=== PATIENT | male | born 1950 | race Two or more races ===

== ENCOUNTER 2023-03-11 15:16 | Inpatient (IN) | payer MEDICARE, OTHER ==
[~2023-03-11] VITALS: Ht 172.7 cm; Wt 103.0 kg
--- NOTE | 2023-03-11 15:35 | NUR ---
PT CAME FROM HOME BY AMBULACE WITH C/O BOTH LOWER LIMB SWELLING AND OOZING
--- NOTE | 2023-03-11 15:41 | NUR ---
SEEN BY DR JEFFERSON AT BED SIDE
[2023-03-11] MEDS ORDERED: FUROSEMIDE 40 MG/4 ML VIAL ONE (15:46)
--- NOTE | 2023-03-11 15:57 | NUR ---
BLOOD INVESTIGATION DONE BY LAB
[2023-03-11] MEDS ORDERED: FUROSEMIDE 40 MG/4 ML VIAL IV ONE (16:00)
[2023-03-11] MEDS ORDERED: FURO40TA5 PO (16:19)
[2023-03-11] MEDS ORDERED: TYL2T PO (16:19)
[2023-03-11] MEDS ORDERED: DULO20CA PO (16:19)
[2023-03-11] MEDS ORDERED: SPIR25TA PO (16:19)
[2023-03-11] MEDS ORDERED: DOCU-141 PO (16:19)
[2023-03-11] MEDS ORDERED: ATOR80TA PO (16:19)
[2023-03-11] MEDS ORDERED: METO25TA6 PO (16:19)
[2023-03-11] MEDS ORDERED: APIX5TAB PO (16:19)
[2023-03-11 16:28] LABS: BASOPHILS % (AUTO) 0.3 % (0.0-2.0); EOSINOPHILS % (AUTO) 0.5 % (0.0-6.0); HEMATOCRIT 38 % (39-51); HEMOGLOBIN 12.1 g/dL (13.5-17.5); LYMPHOCYTES # (AUTO) 0.8 K/uL (0.8-4.8); LYMPHOCYTES % (AUTO) 10.8 % (20.0-44.0); MEAN CORPUSCULAR HGB CONC 32 g/dl (31.0-36.0); MEAN CORPUSCULAR VOLUME 83 fL (80-96); MONOCYTES # (AUTO) 0.8 K/uL (0.1-1.30); MONOCYTES % (AUTO) 10.5 % (2.0-12.0); NEUTROPHILS # (AUTO) 5.6 K/uL (1.8-8.9); NEUTROPHILS % (AUTO) 77.9 % (43.0-81.0); PLATELET COUNT (AUTO) 270 K/uL (150-450); RED BLOOD CELL COUNT(AUTO) 4.53 MIL/uL (4.5-6.0); WHITE BLOOD COUNT (AUTO) 7.2 K/uL (4.3-11.0)
[2023-03-11 16:38] LABS: CALCIUM, SERUM 9.6 mg/dL (8.5-10.1); CARBON DIOXIDE 30 mmol/L (21-32); CHLORIDE 98 mmol/L (98-107); CREATININE 1.2 mg/dL (0.6-1.3); GLUCOSE 105 mg/dL (74-106); POTASSIUM 3.7 mmol/L (3.5-5.1); SODIUM SERUM 136 mmol/L (136-145); UREA NITROGEN, BLOOD 23 mg/dL (7-18)
[2023-03-11 16:49] LABS: ALANINE AMINOTRANSFERASE 77 U/L (12-78); ALBUMIN 2.9 g/dL (3.4-5.0); ALKALINE PHOSPHATASE 153 U/L (46-116); ASPARTATE AMINOTRANSFERASE 76 U/L (15-37); BILIRUBIN,DIRECT 1.2 mg/dL (0.0-0.2); BILIRUBIN,TOTAL 1.7 mg/dL (0.2-1.0); MAGNESIUM 2.3 mg/dL (1.8-2.4); TOTAL PROTEIN, SERUM 7.2 g/dL (6.4-8.2)
[2023-03-11] MEDS ORDERED: MAGNESIUM HYDROXIDE 30 ML UDC PO PRN (17:00)
[2023-03-11] MEDS ORDERED: ACETAMINOPHEN 325 MG TABLET PO PRN (17:00)
[2023-03-11] MEDS ORDERED: MAG HYDROX/AL HYDROX/SIMETH 30 ML UDC PO PRN (17:00)
[2023-03-11] MEDS ORDERED: DOCUSATE SODIUM 100 MG CAPSULE PO PRN (17:00)
[2023-03-11] MEDS ORDERED: Z GUARD REMEDY 4 OZ OINT TP PRN (17:00)
[2023-03-11] MEDS ORDERED: ZOLPIDEM TARTRATE 5 MG TABLET PO PRN (17:00)
[2023-03-11] MEDS ORDERED: ONDANSETRON HCL/PF 4 MG/2 ML VIAL IVP PRN (17:00)
--- NOTE | 2023-03-11 17:25 | NUR ---
ROOM 328-1
--- NOTE | 2023-03-11 17:34 | NUR ---
ECHO AT BED SIDE
--- NOTE | 2023-03-11 18:08 | NUR ---
DINESES SOB OR CHEST pain at this time
--- NOTE | 2023-03-11 18:30 | NUR ---
HAND OFFIVAN RN AT BED SIDE TO ROOM 328-1 STABLE VS AND CONDITION
[2023-03-11 18:40] VITALS: BP 128/76
--- NOTE | 2023-03-11 18:54 | NUR ---
DEMONSTRATOR ELECTRIC GAS APPLIANCES NOTES RECEIVED THIS 72 YO MALE PT AT ROOM [facility] AT 1830 VIA HIS BED ACCOMPANIED BY NURSE CHAPO AND JAXON IN STABLE CONDITION, PATIENT IS AOX4, ABLE TO MAKE NEEDS KNOWN IN [place], DENIED PAIN NOR DISCOMFORT AT THE MOMENT, BREATHING WITHOUT DIFFICULTY ON ROOM AIR. ON TELEMONITORING SHOWING SR WITH HR OF 85 BPM AT THE MOMENT. IV ACCESS NOTED ON LAC G#20, CLEAN, INTACT, FLUSHING WELL. VITAL SIGNS TAKEN RECORDED, STABLE. ORIENTED PATIENT TO STAFF. SAFETY MEASURES IN PLACE: BED IN LOWEST AND LOCKED POSITION, SIDE RAILS UPX2, CALL LIGHT AND TRAY TABLE WITHIN EASY REACH. WILL ENDORSE TO OBJECT ORIENTED DEVELOPER ADMITTING NURSE. W
[2023-03-11 20:00] VITALS: BP 117/74
[2023-03-11] MEDS ORDERED: VANCOMYCIN 1.5 GM in IV D5W 500ml IV ONE (20:00)
--- NOTE | 2023-03-11 20:00 | NUR ---
ADMINISTRATIVE SUPPORT COORDINATORSHIRRING TENDER NOTES - RECEIVED PATIENT AWAKE IN BED. 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 A/O X4. BREATHING EVEN AND NON-LABORED ON ROOM AIR. NOT IN APPARENT DISTRESS. VERBALIZED BURNING BILATERAL LOWER EXTREMITY PAIN 5/10. ON TELE MONITOR READING SINUS RHYTHM WITH OCCASIONAL PAC AT 90 BPM. HAS LEFT ANTECUBITAL IV ACCESS #20G AND SALINE LOCKED. NO S/S OF INFILTRATION NOTED. BILATERAL LOWER EXTREMITIES CELLULITIS NOTED. PER PATIENT, HE USES A SUPPORT CANE FOR AMBULATION. INDEPENDENT WITH ADLS. MULTIPLE SCABS NOTED FROM RECENT FALL. SAFETY PRECAUTIONS IN PLACE: BED LOCKED AND IN LOW POSITION, SIDE RAILS UP X2, CALL LIGHT WITHIN REACH. WILL CONTINUE PLAN OF CARE.
[2023-03-11] MEDS: APIXABAN 5 MG TABLET PO SCH (20:14)
[2023-03-11] MEDS: DULOXETINE HCL 20 MG CAPSULE.DR PO SCH (20:16)
[2023-03-11] MEDS: METOPROLOL TARTRATE 25 MG TABLET PO SCH (20:16)
[2023-03-11] MEDS ORDERED: TRAMADOL HCL 50 MG TABLET PO PRN (20:30)
--- NOTE | 2023-03-11 21:12 | NUR ---
NOTIFIED HOSPITALIST NILO THAT PATIENT IS C/O BURNING BILATERAL LOWER EXTREMITIES PAIN 03/05. PRN TRAMADOL 50MG ORDERED.
[2023-03-11] MEDS: ATORVASTATIN 40 MG TABLET PO SCH (21:26)
[2023-03-11] MEDS: PIPERACILLIN /TAZOBACTAM 3.375 G in IV D5W 50 ML IV SCH (23:00)
[2023-03-11] MEDS: GUAIFENESIN LA 600 MG TABLET.SA PO SCH (23:37)
[2023-03-12] VITALS: BP 114/71
[2023-03-12 04:00] VITALS: BP 128/80
[2023-03-12] MEDS: PIPERACILLIN /TAZOBACTAM 3.375 G in IV D5W 50 ML IV SCH ×4 (05:19→23:38)
[2023-03-12 06:34] LABS: BASOPHILS % (AUTO) 0.2 % (0.0-2.0); EOSINOPHILS % (AUTO) 0.4 % (0.0-6.0); HEMATOCRIT 35 % (39-51); HEMOGLOBIN 11.5 g/dL (13.5-17.5); LYMPHOCYTES # (AUTO) 0.8 K/uL (0.8-4.8); LYMPHOCYTES % (AUTO) 11.7 % (20.0-44.0); MEAN CORPUSCULAR HGB CONC 33 g/dl (31.0-36.0); MEAN CORPUSCULAR VOLUME 83 fL (80-96); MONOCYTES # (AUTO) 0.9 K/uL (0.1-1.30); MONOCYTES % (AUTO) 12.9 % (2.0-12.0); NEUTROPHILS # (AUTO) 5.4 K/uL (1.8-8.9); NEUTROPHILS % (AUTO) 74.8 % (43.0-81.0); PLATELET COUNT (AUTO) 266 K/uL (150-450); RED BLOOD CELL COUNT(AUTO) 4.22 MIL/uL (4.5-6.0); WHITE BLOOD COUNT (AUTO) 7.3 K/uL (4.3-11.0)
[2023-03-12 06:48] LABS: CALCIUM, SERUM 9.1 mg/dL (8.5-10.1); CARBON DIOXIDE 31 mmol/L (21-32); CHLORIDE 93 mmol/L (98-107); CREATININE 1.3 mg/dL (0.6-1.3); GLUCOSE 109 mg/dL (74-106); MAGNESIUM 2.1 mg/dL (1.8-2.4); PHOSPHORUS 3.9 mg/dL (2.5-4.9); POTASSIUM 3.7 mmol/L (3.5-5.1); SODIUM SERUM 134 mmol/L (136-145); UREA NITROGEN, BLOOD 25 mg/dL (7-18)
--- NOTE | 2023-03-12 07:20 | NUR ---
FORESTRY FACULTY MEMBER CLOSING NOTES - PATIENT SLEEPING, EASY TO AROUSE. ABLE TO VERBALIZED NEEDS. SATURATING WELL ON ROOM AIR, PERIODS OF COUGHING AND SOB NOTED. KEPT HOB IN HIGH OLIVIA'S. DENIES PAIN AT THIS TIME. AFEBRILE. TELE MONITOR SHOWS SINUS RHYTHM WITH OCCASIONAL PAC AT 70-80 BPM. LEFT ANTECUBITAL IV ACCESS INTACT, PATENT AND FLUSHING. ALL DUE MEDS GIVEN AND NEEDS ATTENDED. OFFLOADED BILATERAL LOWER EXTREMITIES WITH PILLOW. SAFETY PRECAUTIONS MAINTAINED. WILL ENDORSE TO AM RN FOR KAMILLA.
--- NOTE | 2023-03-12 07:25 | NUR ---
ns rn received on bed, awake,alert,oriented x3,not in any form of distress, respirations even and unlabored,no sob noted, came in w/ chf and lower extremities wounds, denies pain at this time, will monitor patient.
[2023-03-12 08:00] VITALS: BP 141/64
[2023-03-12] MEDS: VANCOMYCIN HCL 0.75 GM in IV D5W 250 ML IV SCH ×2 (08:13→20:09)
[2023-03-12] MEDS: DULOXETINE HCL 20 MG CAPSULE.DR PO SCH ×2 (08:44→17:47)
[2023-03-12] MEDS: GUAIFENESIN LA 600 MG TABLET.SA PO SCH ×2 (08:44→21:11)
[2023-03-12] MEDS: METOPROLOL TARTRATE 25 MG TABLET PO SCH ×2 (08:44→17:47)
[2023-03-12] MEDS: APIXABAN 5 MG TABLET PO SCH ×2 (08:45→17:48)
--- NOTE | 2023-03-12 09:00 | NUR ---
ms rn breakfast served,due meds given, tolerated well.was seen by dr. ashley webb/ orders made and carried out.
[2023-03-12] MEDS: FUROSEMIDE 40 MG/4 ML VIAL IV SCH ×3 (09:39→17:47)
[2023-03-12] MEDS: POTASSIUM CHLORIDE 20 MEQ TAB.PRT.SR PO SCH ×3 (09:39→11:44)
[2023-03-12 16:00] VITALS: BP 124/66
--- NOTE | 2023-03-12 18:03 | NUR ---
ms rn on bed, no distress noted,all needs attended.
--- NOTE | 2023-03-12 19:00 | NUR ---
RN OPENING NOTE RECEIVED PT AWAKE IN BED. PT IS A/O X 4, ABLE TO MAKE NEEDS KNOWN. PT IS IN RA, TOLERATING WELL, BREATHING EVEN AND UNLABORED @ THIS TIME. PT IV PRESENT ON THE LEFT FOREARM SALINE LOCK, PATENT, INTACT AND FLUSHES WELL W/ NO S&SX OF INFILTRATION @ SITE NOTED. SAFETY MEASURE IS IN PLACE. BED IN LOWEST AND LOCKED POSITION. SIDE RAIL UP X 2. BEDSIDE TABLE AND CALL LIGHT IS EASY REACH. BED ALARM IS ON. WILL CONTINUE TO MONITOR PT ACCORDINGLY.
[2023-03-12 20:00] VITALS: BP 126/81
[2023-03-12] MEDS: ATORVASTATIN 40 MG TABLET PO SCH (21:11)
[2023-03-13] VITALS: BP_SYST 126; BP_SYST 128; BP_DIAS 78; BP_DIAS 80
[2023-03-13 04:00] VITALS: BP_SYST 126; BP_SYST 128; BP_DIAS 78; BP_DIAS 80
[2023-03-13] MEDS: PIPERACILLIN /TAZOBACTAM 3.375 G in IV D5W 50 ML IV SCH ×2 (05:01→11:27)
[2023-03-13 06:14] LABS: BASOPHILS % (AUTO) 0.2 % (0.0-2.0); EOSINOPHILS % (AUTO) 0.4 % (0.0-6.0); HEMATOCRIT 36 % (39-51); HEMOGLOBIN 11.6 g/dL (13.5-17.5); LYMPHOCYTES # (AUTO) 0.7 K/uL (0.8-4.8); LYMPHOCYTES % (AUTO) 8.4 % (20.0-44.0); MEAN CORPUSCULAR HGB CONC 32 g/dl (31.0-36.0); MEAN CORPUSCULAR VOLUME 84 fL (80-96); MONOCYTES # (AUTO) 1.1 K/uL (0.1-1.30); NEUTROPHILS # (AUTO) 6.4 K/uL (1.8-8.9); PLATELET COUNT (AUTO) 278 K/uL (150-450); RED BLOOD CELL COUNT(AUTO) 4.31 MIL/uL (4.5-6.0); WHITE BLOOD COUNT (AUTO) 8.2 K/uL (4.3-11.0)
--- NOTE | 2023-03-13 06:40 | NUR ---
RN CLOSING NOTE PT AWAKE & RESTING COMFORTABLY IN BED. PT IS A/O X 4, RESPONSIVE & FOLLOWS VERBAL COMMAND. PT IS IN 3L O2 INHALATION VIA NASAL CANNULA, WITH HEAD OF THE BED ELEVATED @ THIS TIME. PT IV PRESENT ON THE LEFT FOREARM SALINE LOCK, PATENT, INTACT AND FLUSHES WELL W/ NO S&SX OF INFILTRATION @ SITE NOTED. SAFETY MEASURE IS IN PLACE. BED IN LOWEST AND LOCKED POSITION. SIDE RAILS UP X 2. BEDSIDE TABLE AND CALL LIGHT IS EASY REACH. BED ALARM IS ON. WILL ENDORSE PT TO THE NEXT SHIFT FOR KAMILLA.
[2023-03-13 07:04] LABS: ALANINE AMINOTRANSFERASE 65 U/L (12-78); ALBUMIN 2.7 g/dL (3.4-5.0); ALKALINE PHOSPHATASE 135 U/L (46-116); ASPARTATE AMINOTRANSFERASE 65 U/L (15-37); CALCIUM, SERUM 9.3 mg/dL (8.5-10.1); CARBON DIOXIDE 28 mmol/L (21-32); CHLORIDE 95 mmol/L (98-107); CREATININE 1.7 mg/dL (0.6-1.3); GLUCOSE 110 mg/dL (74-106); MAGNESIUM 2.3 mg/dL (1.8-2.4); PHOSPHORUS 4.4 mg/dL (2.5-4.9); POTASSIUM 4.2 mmol/L (3.5-5.1); SODIUM SERUM 134 mmol/L (136-145); TOTAL PROTEIN, SERUM 6.7 g/dL (6.4-8.2); UREA NITROGEN, BLOOD 32 mg/dL (7-18)
--- NOTE | 2023-03-13 07:45 | NUR ---
CROP GRAIN OR LIVESTOCK FARMER OPENING NOTES RECEIVED PATIENT SLEEPING IN BED WITH HOB SLIGHTLY ELEVATED, AOX4, ABLE TO MAKE NEEDS KNOWN, PATIENT REMOVED HIS OXYGEN VIA NC @2 LPM SAYING HE IS DOING FINE SATURATING AT 97% WITHOUT SOB. PATIENT IS BLIND ON BOTH EYES, SHOWED THAT NC IS NEXT TO CALL LIGHT. PATIENT AWARE. DENIED PAIN NOR DISCOMFORT AT THIS TIME, WANTING TO GO HOME ALREADY, APPEARS ANXIOUS, REASSURED THAT HE WILL GET AN UPDATE TODAY. PATIENT CALMED DOWN. ON TELEMONITORING WITH CURRENT READING OF SINUS RHYTHM AT 73 BPM. IV ACCESS ON LEFT FOREARM G#22 SALINE LOCKED, INTACT, FLUSHING WELL. SAFETY MEASURES IN PLACE: BED IN LOWEST AND LOCKED POSITION, SIDE RAILS UP X2, CALL LIGHT AND TRAY TABLE WITHIN EASY REACH. WILL CONTINUE TO MONITOR.
[2023-03-13 08:00] VITALS: BP 120/66
[2023-03-13 08:05] LABS: CHOLESTEROL 68 mg/dL (<200); HDL CHOLESTEROL 34 mg/dL (40-60); LDL 32 mg/dL (0-99); TRIGLYCERIDES 42 mg/dL (30-150)
[2023-03-13] MEDS: VANCOMYCIN HCL 0.75 GM in IV D5W 250 ML IV SCH ×2 (08:47→20:44)
[2023-03-13] MEDS: DULOXETINE HCL 20 MG CAPSULE.DR PO SCH ×2 (08:47→16:22)
[2023-03-13] MEDS: GUAIFENESIN LA 600 MG TABLET.SA PO SCH ×2 (08:47→21:43)
[2023-03-13] MEDS: METOPROLOL TARTRATE 25 MG TABLET PO SCH ×2 (08:48→16:22)
[2023-03-13] MEDS: APIXABAN 5 MG TABLET PO SCH ×2 (08:48→16:22)
[2023-03-13 12:00] VITALS: BP 103/74
[2023-03-13 16:00] VITALS: BP 121/84
--- NOTE | 2023-03-13 19:00 | NUR ---
BAND LEADER CLOSING NOTES PATIENT SLEEPING IN BED WITH HOB SLIGHTLY ELEVATED, AOX4, ABLE TO MAKE NEEDS KNOWN, ON 2LPM VIA NC SATURATING WELL AT 95%. DENIED PAIN NOR DISCOMFORT AT THIS TIME, WANTING TO GO HOME ALREADY, APPEARS ANXIOUS. ON TELEMONITORING WITH CURRENT READING OF SINUS RHYTHM AT 75 BPM. STILL WITH IV ACCESS ON LEFT FOREARM G#22 SALINE LOCKED, INTACT, FLUSHING WELL. ALL DUE MEDS GIVEN, ALL NEEDS MET. SAFETY MEASURES IN PLACE: BED IN LOWEST AND LOCKED POSITION, SIDE RAILS UP X2, CALL LIGHT AND TRAY TABLE WITHIN EASY REACH. WILL ENDORSE TO DIRECTOR BLOOD BANK NURSE.
--- NOTE | 2023-03-13 19:40 | NUR ---
REGIONAL CRA OPENING NOTE RECEIVED PATIENT AWAKE, IN BED WITH HOB ELEVATED. PT AOX4, ABLE TO MAKE NEEDS KNOWN. PATIENT IS BLIND ON BOTH EYES. PATIENT AWARE. DENIED PAIN AND DISCOMFORT AT THIS TIME. ON TELEMONITORING WITH CURRENT READING OF SINUS RHYTHM AT 67 BPM. IV ACCESS TO LEFT FOREARM G#22 SALINE LOCKED, INTACT, FLUSHING WELL. SAFETY MEASURES IN PLACE: BED IN LOWEST AND LOCKED POSITION, SIDE RAILS UP X2, CALL LIGHT AND TRAY TABLE WITHIN REACH. WILL CONTINUE TO MONITOR PT.
[2023-03-13 20:00] VITALS: BP_SYST 101; BP_SYST 115; BP_DIAS 64; BP_DIAS 81
[2023-03-13] MEDS: PIPERACILLIN /TAZOBACTAM 3.375 G in IV D5W 100 ML IV SCH (21:51)
--- NOTE | 2023-03-13 22:00 | NUR ---
TOOL FILER NOTE TOOK A FEW PICTURES OF PT SKIN ISSUES, BUT PT REFUSED FINISH TAKING ALL PICTURES. PT STATED THAT HE WANTED TO SLEEP, AND HE WOULD LIKE THE REST OF THE PICTURES TO BE TAKEN DURING THE DAY.
[2023-03-14] VITALS: BP 115/64
--- NOTE | 2023-03-14 02:00 | NUR ---
ELECTRICAL TRYOUT PERSON NOTE PT REMOVED TELE MONITOR, AND IV ACCESS. HE STATES THAT HE JUST WANTS TO SLEEP. HE SAYS THAT IN THE MORNING I CAN REINSERT IV, AND CONNECT IN BACK TO THE TELE MONITOR.
[2023-03-14 04:00] VITALS: BP 123/80
[2023-03-14 06:39] LABS: EOSINOPHILS % (AUTO) 0.1 % (0.0-6.0); HEMATOCRIT 40 % (39-51); HEMOGLOBIN 12.3 g/dL (13.5-17.5); LYMPHOCYTES # (AUTO) 0.7 K/uL (0.8-4.8); LYMPHOCYTES % (AUTO) 7.6 % (20.0-44.0); MEAN CORPUSCULAR HGB CONC 31 g/dl (31.0-36.0); MEAN CORPUSCULAR VOLUME 86 fL (80-96); MONOCYTES # (AUTO) 1.1 K/uL (0.1-1.30); MONOCYTES % (AUTO) 11.6 % (2.0-12.0); NEUTROPHILS # (AUTO) 7.7 K/uL (1.8-8.9); NEUTROPHILS % (AUTO) 80.7 % (43.0-81.0); PLATELET COUNT (AUTO) 308 K/uL (150-450); RED BLOOD CELL COUNT(AUTO) 4.61 MIL/uL (4.5-6.0); WHITE BLOOD COUNT (AUTO) 9.6 K/uL (4.3-11.0)
[2023-03-14 06:45] LABS: CALCIUM, SERUM 9.4 mg/dL (8.5-10.1); CARBON DIOXIDE 27 mmol/L (21-32); CHLORIDE 91 mmol/L (98-107); CREATININE 1.6 mg/dL (0.6-1.3); GLUCOSE 90 mg/dL (74-106); POTASSIUM 4.2 mmol/L (3.5-5.1); SODIUM SERUM 131 mmol/L (136-145); UREA NITROGEN, BLOOD 36 mg/dL (7-18)
--- NOTE | 2023-03-14 06:50 | NUR ---
CIRCUIT BREAKER SUPERVISOR CLOSING NOTE LEFT PATIENT AWAKE, IN BED WITH HOB ELEVATED. PT AOX4, ABLE TO MAKE NEEDS KNOWN. PATIENT IS BLIND ON BOTH EYES. PATIENT AWARE. DENIED PAIN AND DISCOMFORT AT THIS TIME. ON TELEMONITORING WITH CURRENT READING OF SINUS RHYTHM AT 67 BPM. IV ACCESS TO LEFT FOREARM G#22 SALINE LOCKED, INTACT, FLUSHING WELL. SAFETY MEASURES IN PLACE: BED IN LOWEST AND LOCKED POSITION, SIDE RAILS UP X2, CALL LIGHT AND TRAY TABLE WITHIN REACH. ALL NEEDS ATTENDED. NEW IV ACCESS INSERTED TO LEFT FA #22G. WILL ENDORSE PT TO AM SHIFT NURSE FOR KAMILLA.
--- NOTE | 2023-03-14 08:08 | NUR ---
CATH LAB RADIOLOGY TECHNICIAN OPENING NOTES RECEIVED PATIENT AWAKE IN BED WITH HOB SLIGHTLY ELEVATED, AOX4, PT APPEARS TO BE AGITATED, ANXIOUS, ABLE TO MAKE NEEDS KNOWN, NOTED TO HAVE LABORED BREATHING OF 22 BPM, REFUSED TO WEAR HIS OXYGEN VIA NC ORDER OF @2 LPM SAYING HE IS DOING FINE SATURATING AT 95%. PATIENT IS BLIND ON BOTH EYES, SHOWED THAT NC IS NEXT TO CALL LIGHT. PATIENT AWARE. PATIENT REMOVED HIS TELEMONITORING, OFFERED TO APPLY IT BACK BUT HE SAID LATER, WILL TRY AGAIN SHORTLY. NEW IV ACCESS ON LEFT FOREARM LFA#22 SALINE LOCKED, INTACT, FLUSHING WELL. SAFETY MEASURES IN PLACE: BED IN LOWEST AND LOCKED POSITION, SIDE RAILS UP X3, CALL LIGHT AND TRAY TABLE WITHIN EASY REACH. WILL CONTINUE TO MONITOR.
[2023-03-14] MEDS: VANCOMYCIN HCL 0.75 GM in IV D5W 250 ML IV SCH ×2 (08:24→20:00)
[2023-03-14] MEDS: DULOXETINE HCL 20 MG CAPSULE.DR PO SCH ×2 (08:27→16:34)
[2023-03-14] MEDS: GUAIFENESIN LA 600 MG TABLET.SA PO SCH ×2 (08:27→20:12)
[2023-03-14] MEDS: METOPROLOL TARTRATE 25 MG TABLET PO SCH ×2 (08:29→16:34)
[2023-03-14] MEDS: APIXABAN 5 MG TABLET PO SCH ×2 (08:31→16:37)
[2023-03-14 08:42] VITALS: BP 124/87
--- NOTE | 2023-03-14 09:42 | NUR ---
RN NOTES - BED CALIBRATED, CURRENT WEIGHT PER BED SCALE 223
--- NOTE | 2023-03-14 09:42 | NUR ---
RN NOTES - PATIENT WAS ABLE TO TOLERATE PHYSICAL THERAPY
[2023-03-14] MEDS: PIPERACILLIN /TAZOBACTAM 3.375 G in IV D5W 100 ML IV SCH ×2 (09:44→20:10)
[2023-03-14] MEDS: POTASSIUM CHLORIDE 20 MEQ TAB.PRT.SR PO SCH ×3 (09:47→11:49)
[2023-03-14] MEDS: FUROSEMIDE 40 MG/4 ML VIAL IV SCH ×3 (09:48→16:35)
--- NOTE | 2023-03-14 09:50 | NUR ---
RN NOTES - PT BACK ON TELE - SHOWING SR WITH 73 BPM
--- NOTE | 2023-03-14 10:37 | NUR ---
RN NOTES - DC'D TELEMONITORING PER HOSPITALIST'S ORDERS. CHARGE NURSE AWARE.
--- NOTE | 2023-03-14 11:01 | NUR ---
WOUND CARE CONSULT: PT PRESENTS WITH REDNESS AND WEEPING EDEMA TO LOWER LEGS, PRESENT ON ADMISSION. DR PADILLA CALLED FOR DPM CONSULT. DISCUSSED SKIN PROTECTION WITH NURSING STAFF. PT IS INDEPENDENT WITH BED MOBILITY AND IS CONTINENT. MD IN AGREEMENT WITH PLAN OF CARE.
--- NOTE | 2023-03-14 13:47 | NUR ---
RN NOTES - PATIENT SATURATING AT 94% ON ROOM AIR, BREATHING LABORED. INFORMED HOSPITALIZATION.
[2023-03-14 16:03] VITALS: BP 137/91
[2023-03-14] MEDS: THERAHONEY GEL 1.5 OZ TUBE TP SCH (16:28)
--- NOTE | 2023-03-14 18:48 | NUR ---
RN NOTES - PATIENT MENTIONED HE IS NOW CONSIDERING TO BE DISCHARGED TO ARU AFTER SPEAKING TO OUR FEEDER CATCHER, RELAYED TO THE HOSPITALIST.
--- NOTE | 2023-03-14 18:54 | NUR ---
RN MS CLOSING NOTES PATIENT IN BED WITH HOB SLIGHTLY ELEVATED, AOX4, ABLE TO MAKE NEEDS KNOWN, ON ROOM AIR, REFUSED TO USE HIS OXYGEN VIA NC, STANDBY WITHIN REACH. NO SOB NOTED, DENIED PAIN NOR DISCOMFORT AT THIS TIME. WITH IV ACCESS ON LEFT FOREARM G#22 SALINE LOCKED, INTACT, FLUSHING WELL. WOUND CARE GIVEN. STRICT I/O LOGGED. ALL DUE MEDS GIVEN, ALL NEEDS MET. SAFETY MEASURES IN PLACE: BED IN LOWEST AND LOCKED POSITION, SIDE RAILS UP X2, CALL LIGHT AND TRAY TABLE WITHIN EASY REACH. WILL ENDORSE TO BEAN ROASTER NURSE.
--- NOTE | 2023-03-14 19:30 | NUR ---
MS RN NOTES RECEIVED PATIENT AWAKE AND SITING ON HIS BED. PATIENT IS A/O TIMES 4. NO PAIN NOTED. NO SOB NOTED. NO DISTRESS NOTED. ON ROOM AIR AND PRN O2 VIA NASAL CANNULA. PATIENT TOLERATING WELL. ALL NEEDS ATTENDED. ALL SAFETY MEASURES IN PLACE. IV ACCESS ON THE LFA # 22 INTACT AND SL. ALL SAFETY MEASURES IN PLACE. BED LOCKED IN THE LOWEST POSITION. CALL LIGHT AND TABLE IN EASY REACH. SIDE RAILS UP TIMES 2. WILL CONTINUE TO MONITOR CLOSELY.
--- NOTE | 2023-03-14 21:00 | NUR ---
RN NOTES HELD VANCOMYCIN FOR VANCOMYCIN [place] [id number]. CALLED [facility] AND INFORMED DIGITAL PHOTOGRAPHIC PRINTER ANTHONY, HE STATED THE PHARMACIST MADE AWARE.
[2023-03-14 22:37] VITALS: BP 115/80
--- NOTE | 2023-03-15 | NUR ---
RN NOTES UP TO THIS TIME PATIENT IS REFUSING TO PUT BED ALARM ON SO WE CAN GO AND ASSIST THE PATIENT. EDUCATE THE PATIENT THAT THIS IS FOR HIS SAFETY, BUT PATIENT KEEPS REFUSING THE BED ALARM. PATIENT IS NOT USING CALL LIGHT FOR ASSISTANCE AND HE LIKES TO BE INDEPENDENT AND HE IS USING HIS CANE FOR AMBULATION. 2 EPISODE WE SAW PATIENT MISTAKENLY WALKED OUT TO THE HALLWAY AFTER USING RESTROOM AND INSTEAD OF GOING TO BED HE WALKED OUT TO THE HALLWAY. PATIENT ALSO WAS DROPPING HIS SOME BELONGINGS SUCH HIS COMPUTER, SHAVING MASHINE , ELECTRICIAN FRONT, AND THE AUDIO PLAYER DEVICE. I KEPT THOSE BELONGING ON HIS LEFT SIDE TABLE AND EDUCATED TO USE CALL LIGHT FOR ANY ASSISTANCE. PATIENT VERBALIZED UNDERSTANDING. DURING OTHER ROUNDS NOTED PATIENT STILL IS DROPPING HIS BELONGINGS, URINAL AND OTHER STAFFS.WILL CONTINUE TO KEEP CLOSE MONITORING FOR SAFETY .
[2023-03-15 06:29] LABS: BASOPHILS % (AUTO) 0.2 % (0.0-2.0); EOSINOPHILS % (AUTO) 0.1 % (0.0-6.0); HEMATOCRIT 36 % (39-51); HEMOGLOBIN 11.6 g/dL (13.5-17.5); LYMPHOCYTES # (AUTO) 0.8 K/uL (0.8-4.8); LYMPHOCYTES % (AUTO) 8.3 % (20.0-44.0); MEAN CORPUSCULAR HGB CONC 32 g/dl (31.0-36.0); MEAN CORPUSCULAR VOLUME 83 fL (80-96); MONOCYTES # (AUTO) 1.1 K/uL (0.1-1.30); MONOCYTES % (AUTO) 11.5 % (2.0-12.0); NEUTROPHILS # (AUTO) 7.4 K/uL (1.8-8.9); NEUTROPHILS % (AUTO) 79.9 % (43.0-81.0); PLATELET COUNT (AUTO) 338 K/uL (150-450); RED BLOOD CELL COUNT(AUTO) 4.33 MIL/uL (4.5-6.0); WHITE BLOOD COUNT (AUTO) 9.3 K/uL (4.3-11.0)
--- NOTE | 2023-03-15 06:42 | NUR ---
MS RN CLOSING NOTES PATIENT AWAKE AND SITING ON HIS BED. PATIENT IS A/O TIMES 4. NO PAIN NOTED. NO SOB NOTED. NO DISTRESS NOTED. ON ROOM AIR AND PRN O2 VIA NASAL CANNULA. PATIENT TOLERATING WELL. ALL NEEDS ATTENDED. ALL SAFETY MEASURES IN PLACE. IV ACCESS ON THE LFA # 22 INTACT AND SL. ALL SAFETY MEASURES IN PLACE. BED LOCKED IN THE LOWEST POSITION. CALL LIGHT AND TABLE IN EASY REACH. SIDE RAILS UP TIMES 2. WILL ENDORSE FOR KAMILLA.
[2023-03-15 07:25] LABS: ALANINE AMINOTRANSFERASE 68 U/L (12-78); ALBUMIN 2.9 g/dL (3.4-5.0); ALKALINE PHOSPHATASE 143 U/L (46-116); ASPARTATE AMINOTRANSFERASE 72 U/L (15-37); BILIRUBIN,TOTAL 2.1 mg/dL (0.2-1.0); CALCIUM, SERUM 8.8 mg/dL (8.5-10.1); CARBON DIOXIDE 31 mmol/L (21-32); CHLORIDE 95 mmol/L (98-107); CREATININE 1.7 mg/dL (0.6-1.3); GLUCOSE 91 mg/dL (74-106); MAGNESIUM 2.2 mg/dL (1.8-2.4); POTASSIUM 4.2 mmol/L (3.5-5.1); SODIUM SERUM 135 mmol/L (136-145); UREA NITROGEN, BLOOD 38 mg/dL (7-18)
--- NOTE | 2023-03-15 07:45 | NUR ---
MS RN OPENING NOTES: RECEIVED PATIENT ASLEEP, EASILY ROUSED, A/O X4, ABLE TO MAKE NEEDS KNOWN, NO C/O PAIN AT THIS TIME. PT IS LEGALLY BLIND. ON RA AND OCCASIONAL O2 @ 2L VIA NC, NO S/S SOB NOTED. IV ACCESS AT L FA # 22, PATENT, INTACT, SL. ALL SAFETY MEASURES IN PLACE, BED LOCKED IN THE LOWEST POSITION. CALL LIGHT AND TABLE IN EASY REACH, SIDE RAILS UP TIMES 2; RN IS STATIONED OUTSIDE PT'S ROOM, ENCOURAGED TO USE CALL LIGHT FOR HELP, WILL CONT WITH PLAN OF CARE DURING SHIFT.
[2023-03-15 08:00] VITALS: BP 121/76
[2023-03-15] MEDS ORDERED: VANCOMYCIN 1 GM in IV D5W 250 ML IV SCH (08:00)
[2023-03-15] MEDS: METOPROLOL TARTRATE 25 MG TABLET PO SCH (08:18)
[2023-03-15] MEDS: DULOXETINE HCL 20 MG CAPSULE.DR PO SCH (08:18)
[2023-03-15] MEDS: GUAIFENESIN LA 600 MG TABLET.SA PO SCH (08:18)
[2023-03-15] MEDS: APIXABAN 5 MG TABLET PO SCH (08:19)
[2023-03-15] MEDS: PIPERACILLIN /TAZOBACTAM 3.375 G in IV D5W 100 ML IV SCH (08:24)
[2023-03-15] MEDS ORDERED: FUROSEMIDE 40 MG TABLET PO SCH (09:30)
[2023-03-15] MEDS ORDERED: POTASSIUM CHLORIDE 20 MEQ TAB.PRT.SR PO SCH (09:30)
[2023-03-15] MEDS: THERAHONEY GEL 1.5 OZ TUBE TP SCH (10:33)
--- NOTE | 2023-03-15 12:00 | NUR ---
MARLA NOTES: O2 SAT ON RA 92%, PLAA Addendum: 03/15/23 at 1420 by CASSIDY DHALIWAL RN PLACED PT ON VIA NC, O2 SAT = 95%. WILL CONTINUE TO REASSESS
--- NOTE | 2023-03-15 12:18 | NUR ---
RN NOTES; VANCO RECHECKED WITH PHARM, IF VANCO OK TO GIVE, PT'S VANCO TROUGH = 22 (03/14), PHARMACY OK TO GIVE SINCE DOSE IS CHANGED, IV ABX NOT PRESENT IN UNIT CASSETTE AT 0800, WILL ADMINISTER WHEN READY VANCO IVPB GIVEN 1208 BECAUSE ZOSYN GIVEN AT 0830, RAN FOR 4 HRS PER ORDER
--- NOTE | 2023-03-15 13:18 | NUR ---
VJ Consult: VJ met with pt who was concerned about his housing and would want the lead generation marketing manager to be notified that he is at the hospital and will be going to a short term facility. Pt asked this senior technical writer to contact friend Peng ([phone]) to help with this process. VJ contacted Peng and he stated that he would take care of this.
[2023-03-15 16:07] VITALS: BP 113/70
--- NOTE | 2023-03-15 20:15 | NUR ---
MARLA KEATING NOTES PT STABLE FOR DC. REPORT GIVEN TO CHERYL SOLORZANO BY PHONE TO MARLA HAGAN. PT VITALS WNL. AFEBRILE, O2 SAT @ 96% ON 2L OF O2. DC INSTRUCTIONS, BELONGINGS AND MED RECORDS DISCUSSED WITH PT SIGNED AND VERIFIED BY 2 RNS. WOUND CARE DONE, IV ACCESS AND ID BAND REMOVED. HOME MEDS FROM PHARMACY RETURNED TO PT. SKIN PHOTOS DOCUMENTED IN CHART. GAVE REPORT TO EMT, PT LEFT UNIT [facility], UNIT # [id number]. Addendum: 03/15/23 at 2021 by JANIE BERMUDEZ RN PT DC @ 1650
== END 2023-03-15 16:30 | DRG 602 ==
LOC: ER 15:35 → TELE 17:39 → MED 03-14 13:19
PROVIDERS: ADMIT Nurse Practitioner Acute Care; ATTEND Internal Medicine
DX: L03.115 Cellulitis of right lower limb (principal); I50.33 Acute on chronic diastolic (congestive) heart failure; E44.0 Moderate protein-calorie malnutrition; E87.1 Hypo-osmolality and hyponatremia; J98.11 Atelectasis; I87.312 Chronic venous hypertension (idiopathic) with ulcer of left lower extremity; L97.929 Non-pressure chronic ulcer of unspecified part of left lower leg with unspecified severity; I11.0 Hypertensive heart disease with heart failure; L03.116 Cellulitis of left lower limb; I48.0 Paroxysmal atrial fibrillation; Z79.01 Long term (current) use of anticoagulants; Z79.899 Other long term (current) drug therapy; E78.5 Hyperlipidemia, unspecified; H54.8 Legal blindness, as defined in USA; R74.01 Elevation of levels of liver transaminase levels; E86.1 Hypovolemia; E66.9 Obesity, unspecified; Z68.34 Body mass index [BMI] 34.0-34.9, adult; I87.8 Other specified disorders of veins; Z87.891 Personal history of nicotine dependence
CPT/HCPCS: 36415; 71045-TC; 76700-TC; 80048-TC; 80053-TC; 80061-TC; 80076-TC; 80202-TC; 83735-TC; 83880; 84100-TC; 84484-TC; 85025-TC; 87040-TC; 87081-TC; 93307-TC; 93970-TC; 97112-TC; 97116-TC; 97530-TC; A4223; A6403; G0378; J1940; J2543; J3370; J7050; J7060